=== PATIENT | female | born 1990 | race Caucasian/White ===

== ENCOUNTER → 2016-07-05 | Outpatient (CLI) | payer OTHER, MEDICAID ==
--- NOTE | 2016-07-05 14:55 | REP ---
OB ULTRASOUND: Real-time sonographic evaluation of the gravid uterus is performed utilizing transabdominal and endovaginal technique. There is a single living intrauterine gestation with an estimated gestational age 20 weeks 5 days with EDC 11/17/2016. Today's measurements indicate appropriate growth. Biometry and Growth: BPD 48 mm = 20 weeks 4 days, 47th percentile HC 178 mm = 20 weeks 2 days, 37th percentile AC 159 mm = 21 weeks 0 days, 57th percentile FL 32 mm = 20 weeks 0 days, 34th percentile HC/AC ratio 1.12 within normal range. Estimated weight 362 grams, 42nd percentile. SEEN/GROSSLY UNREMARKABLE Lateral ventricles Yes Posterior fossa Yes Upper lip Yes Four-chamber heart No LVOT Yes RVOT No Stomach Yes Cord insertion Yes Three vessel cord Yes Kidneys Yes Bladder Yes Spine Yes Cervical length: The cervix is closed and measures 3.1 cm in length. heart rate: 141 beats per minute. position: Breech. Placenta: Posterior and grade 0. On transvaginal images the tip of the placenta appears to extend to the margin of the internal cervical os suggesting a marginal previa. Amniotic fluid: Within normal limits. IMPRESSION: anatomy as above. There appears to be a marginal previa. Signed by Julio Hopper MD 07/05/2016 03:58 P
== END ==
LOC: M SMT 10:09
PROVIDERS: ATTEND Obstetrics & Gynecology
DX: Z34.82 Encounter for supervision of other normal pregnancy, second trimester (principal)

== ENCOUNTER → 2016-08-03 | Outpatient (CLI) | payer OTHER, MEDICAID ==
--- NOTE | 2016-08-03 15:46 | REP ---
Clinical: Anatomical evaluation. Comparison: 07/05/2016 . Findings: Examination demonstrates a single live intrauterine in cephalic presentation. motion is identified by technologist. Placenta is noted posterior and low-lying 1.2 cm from the internal os and grade 0. Amniotic fluid volume is normal. Cervix measures 3.5 cm in length and appears closed. No evidence for nuchal cord. Gestational age by LMP 24 weeks 6 days with ZANE 11/17/2016 . Gestational age by current measurements 24 weeks 0 days with ZANE 11/23/2016 . FHR equals 153 beats per minute. Estimated weight 708 grams ( 34th percentile). Anatomical assessment demonstrates normal structures including cranium, choroid plexus, cavum, cerebellum/posterior fossa, facial features, left cardiac ventricular outflow tract, stomach, cord insertion/three-vessel cord, kidneys/bladder, spine, and extremities. Limited evaluation of the facial profile, four-chamber heart and right ventricular outflow tract again noted. Impression: 1. Single live intrauterine currently in cephalic presentation demonstrating appropriate interval growth. 2. Low-lying posterior placenta 1.2 cm from the closed internal os. 3. Limited evaluation of the facial profile, four-chamber heart and right ventricular outflow tract again noted. Signed by Dashawn Morrison MD 08/03/2016 03:37 P
== END ==
LOC: M SMT 13:02
PROVIDERS: ATTEND Advanced Practice Midwife
DX: O44.22 Partial placenta previa NOS or without hemorrhage, second trimester (principal)

== ENCOUNTER → 2016-08-16 | Outpatient (CLI) | payer OTHER, MEDICAID ==
[2016-08-16 13:04] LABS: BASO % 0.1 % (0.0-1.0); EOS # 0.1 K/mm3 (0.0-0.50); EOS % 0.6 % (0.0-3.0); LARGE UNSTAINED CELL # 0.2 K/mm3 (0.0-0.4); LARGE UNSTAINED CELL % 1.1 % (0.0-4.0); LYMPH # 1.7 K/mm3 (1.5-6.5); LYMPH % 11.1 % (24.0-44.0); MEAN CORPUSCULAR HEMOGLOBIN 30.7 pg (27.0-33.0); MEAN CORPUSCULAR HGB CONC 32.9 g/dl (32.0-36.5); MEAN CORPUSCULAR VOLUME 93.4 fl (80.0-96.0); MONO # 0.5 K/mm3 (0.0-0.8); MONO % 3.1 % (0.0-5.0); NEUTROPHILS # 12.5 K/mm3 (1.8-7.7); NEUTROPHILS % 83.9 % (36.0-66.0); PLATELET COUNT, AUTOMATED 282 k/mm3 (150-450); RED CELL DISTRIBUTION WIDTH 13.3 % (11.5-14.5); WHITE BLOOD COUNT 14.9 K/mm3 (4.0-10.0)
== END ==
LOC: M SMT 11:58
PROVIDERS: ATTEND Advanced Practice Midwife
DX: Z34.83 Encounter for supervision of other normal pregnancy, third trimester (principal)

== ENCOUNTER → 2016-09-04 | Outpatient (CLI) | payer OTHER, MEDICAID ==
--- NOTE | 2016-09-05 04:41 | REP ---
Clinical: Anatomical evaluation. Comparison: 08/03/2016 . Findings: Examination demonstrates a single live intrauterine in cephalic presentation. motion is identified by technologist. Placenta is noted posteriorly, low-lying (approximately 1.5 cm from the closed internal os) and grade I. While there is no evidence for vasa previa, prominent vessels are identified adjacent to the closed cervix. Amniotic fluid volume is normal. Cervix measures 3.8 cm in length and appears closed. Nuchal cord noted. Gestational age by LMP 29 weeks 3 days with ZANE 11/17/2016 . Gestational age by first ultrasound 29 weeks 3 days with ZANE 11/17/2016. FHR equals 144 beats per minute. Estimated weight 1273 grams ( 27th percentile). Limited anatomical assessment again demonstrates incomplete evaluation of the heart and cardiac ventricular outflow tracts. A small pericardial effusion is suggested. Impression: 1. Single live intrauterine in cephalic presentation. 2. Low-lying posterior placenta with prominent vessels noted adjacent to the close cervical os. 3. Small pericardial effusion and incomplete evaluation of the heart/cardiac ventricular outflow tracts again noted. Signed by Dashawn Morrisno MD 09/05/2016 04:32 A
== END ==
LOC: M SMT 13:44
PROVIDERS: ATTEND Advanced Practice Midwife
DX: Z34.83 Encounter for supervision of other normal pregnancy, third trimester (principal)

== ENCOUNTER → 2016-10-03 | Outpatient (CLI) | payer OTHER, MEDICAID ==
--- NOTE | 2016-10-03 22:12 | REP ---
Clinical: Evaluate placental location. Comparison: 09/04/2016. Technique: Transabdominal obstetrical ultrasound with color Doppler evaluation. Findings: Ultrasound examination demonstrates single live advanced gestation in cephalic presentation. motion was identified by technologist. heart rate equals 139 beats per minute. Gestational age by first ultrasound 33 weeks 4 days. Placenta is identified posteriorly and grade 1 approximately 2.1 cm from the internal os. No funneling or endocervical fluid is appreciated. Amniotic fluid index equals 9.7 cm (8.2 - 24.7). Umbilical cord SD ratio equals 2.41 (2.00 - 3.00). Impression: 1. Single live advanced gestation in cephalic presentation. 2. Placenta is noted posteriorly and low-lying, approximately 2.1 cm from the closed internal os. Signed by Dashawn Morrison MD 10/03/2016 10:04 P
== END ==
LOC: M SMT 10:47
PROVIDERS: ATTEND Specialist
DX: O44.43 Low lying placenta NOS or without hemorrhage, third trimester (principal)

== ENCOUNTER 2016-10-25 00:37 | Inpatient (IN) | payer OTHER, MEDICAID ==
[~2016-10-25] VITALS: Ht 152.4 cm; Wt 85.0 kg
[2016-10-25] VITALS (14 sets, daily range): BP systolic 118–141; BP diastolic 60–85
[2016-10-25] MEDS ORDERED: LR 1,000 ML IV SCH (01:24)
[2016-10-25] MEDS ORDERED: PENICILLIN G POTASSIUM IV 5 MU in D5W MINI-BAG PLUS 100 ML IV STA (01:24)
[2016-10-25] MEDS ORDERED: BETAMETHASONE SOLUSPAN 6MG/ML INJ 5ML (J0702) IM SCH (01:30)
[2016-10-25] MEDS ORDERED: OXYTOCIN DRIP 30 UNITS in APPROPRIATE DILUENT 1 EA IV SCH ×2 (01:30→06:50)
[2016-10-25 01:54] LABS: MEAN CORPUSCULAR HEMOGLOBIN 31.5 pg (27.0-33.0); MEAN CORPUSCULAR HGB CONC 34.4 g/dl (32.0-36.5); MEAN CORPUSCULAR VOLUME 91.3 fl (80.0-96.0); RED CELL DISTRIBUTION WIDTH 13.6 % (11.5-14.5); WHITE BLOOD COUNT 13.4 K/mm3 (4.0-10.0)
[2016-10-25] MEDS ORDERED: BUTORPHANOL 2 MG/ML INJ (J0595) IV ONE (02:30)
[2016-10-25] MEDS ORDERED: PROMETHAZINE INJ 25 MG/ML VIAL (J2550) IV ONE (02:30)
[2016-10-25] MEDS ORDERED: FE G325T PO (03:31)
[2016-10-25] MEDS ORDERED: PENICILLIN G POTASSIUM IV 2.5 MU in D5W 100 ML IV SCH (05:30)
[2016-10-25 06:23] LABS: CORD GAS ABE V -7.7; CORD GAS HCO3 V 17.1 MEQ/L; CORD GAS O2 SAT V 84.7 %; CORD GAS PCO2 V 33.4 mmHg; CORD GAS PH V 7.326 UNITS; CORD GAS PO2 V 41.3 mmHg; CORD GAS SBC V 18.1 MEQ/L; CORD GAS TCO2 V 18.1 MEQ/L
[2016-10-25 06:26] LABS: CORD GAS ABE A -6.3; CORD GAS HCO3 A 20.9 MEQ/L; CORD GAS O2 SAT A 59.2 %; CORD GAS PCO2 A 47.5 mmHg; CORD GAS PH A 7.262 UNITS; CORD GAS PO2 A 26.2 mmHg; CORD GAS SBC A 18.5 MEQ/L; CORD GAS TCO2 A 22.4 MEQ/L
[2016-10-25] MEDS ORDERED: LIDOCAINE 1% MDV INJ 50 ML VIAL INFIL ONE (07:00)
[2016-10-25] MEDS ORDERED: PROMETHAZINE 25 MG TAB PO PRN (07:00)
[2016-10-25] MEDS ORDERED: IBUPROFEN 800 MG TAB PO PRN (07:00)
[2016-10-25] MEDS ORDERED: ANUSOL HC CREAM 30GM TOP PRN (07:00)
[2016-10-25] MEDS ORDERED: DOCUSATE SODIUM 100 MG CAP PO PRN (07:00)
[2016-10-25] MEDS ORDERED: DIBUCAINE 1% OINTMENT 30GM TOP PRN (07:00)
[2016-10-25] MEDS ORDERED: RHOGAM 300 MCG (1500 IU) INJ (J2790) IM SCH (07:00)
[2016-10-25] MEDS ORDERED: METHYLERGONOVINE MALEATE 0.2 MG TAB PO PRN (07:00)
[2016-10-25] MEDS ORDERED: MEASLES,MUMPS,RUBELLA VACCINE INJ (MMR-II) (90707) SC SCH (07:00)
[2016-10-25] MEDS ORDERED: ACETAMINOPHEN 500 MG TAB PO PRN (07:00)
--- NOTE | 2016-10-25 07:09 | DN ---
DATE: 10/25/2016 Jennifer is a 26-year-old 3, para 0-1-2-1 now, who was admitted to labor and delivery with premature rupture of membranes. Intravenous (IV) antibiotics for started for Group B streptococcus (GBS) prophylaxis as well as IV Pitocin. She utilized IV pain medication to cope with her labor. She progressed to full dilation at 0446 hours. She pushed to a normal spontaneous vaginal delivery of a live male infant in occiput anterior (OA) position with restitution to occiput transverse (ROT) position at 0551 hours. There was a nuchal cord times one loose that was reduced manually at the time of delivery. The shoulders delivered with gentle downward traction and the corpus immediately followed. The was placed on maternal abdomen crying and active. His mouth and nares were bulb suctioned. The cord was clamped times two and cut by the father of the baby. Cord gases and cord blood were obtained. A spontaneous expulsion of an intact placenta with three-vessel cord by Ledezma mechanism was at 0602 hours. Uterine hemostasis achieved with IV Pitocin rapid infusion and uterine fundal massage. Estimated blood loss 350 mL. Perineum and vagina inspected, noted to have a first-degree midline laceration. The laceration was infiltrated with 1% lidocaine and repaired with #3-0 Rapide in the usual fashion. The male weighed 2820 grams (6 pounds 3 ounces). 9 and 9. Mom plans to breastfeed her son and the family have named him Rosetta. At the close of delivery, lap counts, needle counts and instrument counts were correct and verified.
[2016-10-25] MEDS: PRENATAL VITAMIN TAB PO SCH (09:31)
--- NOTE | 2016-10-25 22:12 | HPE ---
DATE OF ADMISSION: 10/25/2016 SUBJECTIVE: Jennifer is a 26-year-old 3, para 0-0-2-0 at 35-6/7 weeks gestation with an estimated date of confinement (EDC) of 11/24/2015, based on first trimester ultrasound. She presents to labor and delivery today with report of uncomfortable contractions that remained throughout the day and became progressively more uncomfortable overnight. She reports that she has a spontaneous rupture of clear fluid at approximately 2330. She does report continued leakage of fluid and continued contractions with some bloody show. Her fetus has been active. care was initiated at [facility] in the first trimester. course complicated by cigarette smoking throughout her , a low-lying placenta which resolved on 10/03/2106, sonogram. OBSTETRIC HISTORY: Spontaneous times two. OBSTETRIC LABORATORIES: Blood type is B positive, antibody screen negative, rubella immune, VDRL nonreactive. Hepatitis B surface antigen negative, HIV negative. Hepatitis C antibody nonreactive. Gonorrhea and chlamydia negative. She declined all genetic serum screening labs. Her gestational diabetic screening was normal at 126 and her GBS is unknown at this time. PAST MEDICAL HISTORY: Negative. SURGERIES: Knee surgery. FAMILY HISTORY: Hypertension, deep venous thrombosis (DVT). SOCIAL HISTORY: The patient is single. However of the father of the baby is at bedside and supportive. She is a smoker. She denies alcohol and drug use. Denies history of sexually transmitted infections. Denies history of abuse physical, sexual and emotional. ALLERGIES: No known drug allergies. CURRENT MEDICATIONS: Ferrous gluconate, vitamins OBJECTIVE: Temperature is 97.9, pulse 105, respirations 18, blood pressure 136/85. She is alert and oriented. She is uncomfortable with her contractions. heart rate is 130 with moderate variability, positive accelerations noted. No decelerations noted. Contractions every 1-4 minutes. Sterile speculum exam positive Valsalva, positive Nitrazine and positive ferning. Sterile vaginal exam 3-4 cm dilated, 90% effaced, minus one station. Abdomen is gravid with cephalic presentation confirmed with bedside ultrasound. Estimated weight 6 pounds. Group B streptococcus (GBS) was obtained. ASSESSMENT: Intrauterine at 35-6/7 weeks gestation. heart rate category one, TPROM. PLAN: Admit the patient to labor and delivery, labs, out of bed ad tiffanie. Clear liquid diet. Start antibiotics for GBS prophylaxis. Betamethasone for lung maturity and intravenous (IV) Pitocin to augment the labor. The patient does desire an epidural potentially for her labor coping or IV pain medications as needed. I did review risks of immaturity and the likelihood of the 's admission to the intensive care unit. I do anticipate a normal spontaneous vaginal delivery.
[2016-10-26 05:50] VITALS: BP 131/76
[2016-10-26] MEDS: PRENATAL VITAMIN TAB PO SCH (08:39)
[2016-10-26 18:00] VITALS: BP 129/63
[2016-10-27 05:32] VITALS: BP 133/76
[2016-10-27] MEDS ORDERED: PRENATAL VITAMINS CHEWABLE TABLET PO SCH (09:00)
[2016-10-27] MEDS ORDERED: ACET50TA PO (11:12)
[2016-10-27] MEDS ORDERED: IBUP-1114 PO (11:12)
== END 2016-10-27 12:37 | disposition home or self-care (01) | DRG 560 ==
LOC: M LDO 00:37 → M LDI 01:20 → M OBS 08:48
PROVIDERS: ADMIT Advanced Practice Midwife; ATTEND Advanced Practice Midwife
PROC: 10E0XZZ Delivery of Products of Conception, External Approach (ICD-10-PCS; principal; 2016-10-25)
PROC: 0HQ9XZZ Repair Perineum Skin, External Approach (ICD-10-PCS; 2016-10-25)
DX: O42.013 Preterm premature rupture of membranes, onset of labor within 24 hours of rupture, third trimester (principal); O60.14X0 Preterm labor third trimester with preterm delivery third trimester, not applicable or unspecified; Z37.0 Single live birth; Z3A.35 35 weeks gestation of pregnancy; F17.210 Nicotine dependence, cigarettes, uncomplicated; Z79.899 Other long term (current) drug therapy; O69.82X0 Labor and delivery complicated by other cord entanglement, without compression, not applicable or unspecified; O70.0 First degree perineal laceration during delivery; O99.334 Smoking (tobacco) complicating childbirth

== ENCOUNTER → 2017-11-12 | Outpatient (REF) | payer OTHER, MEDICAID | LOC: M LAB REF 18:23 | DX: Z12.4 Encounter for screening for malignant neoplasm of cervix (principal) | CPT/HCPCS: 88142 ==

== ENCOUNTER → 2018-11-20 | Outpatient (CLI) | payer OTHER, MEDICAID ==
[~2018-11-20] MED LIST: FE G325T PO; IBUP-1114 PO; MAPA500T2 PO
[2018-11-20 16:10] LABS: CHLAMYDIA DNA AMPLIFICATION NEGATIVE (NEGATIVE); GC DNA AMPLIFICATION NEGATIVE (NEGATIVE)
[2018-11-20 17:57] LABS: HCG, SERUM QUALITATIVE NEGATIVE (NEGATIVE)
== END ==
LOC: M SMT 11:17
PROVIDERS: ATTEND Advanced Practice Midwife
DX: N91.2 Amenorrhea, unspecified (principal); Z11.3 Encounter for screening for infections with a predominantly sexual mode of transmission

== ENCOUNTER → 2020-05-17 | Outpatient (REF) | payer OTHER, MEDICAID | LOC: M PLALAB 16:46 | PROVIDERS: ATTEND Advanced Practice Midwife | DX: O03.9 Complete or unspecified spontaneous abortion without complication (principal); Z12.4 Encounter for screening for malignant neoplasm of cervix; Z77.9 Other contact with and (suspected) exposures hazardous to health; Z01.419 Encounter for gynecological examination (general) (routine) without abnormal findings ==

== ENCOUNTER → 2022-01-02 | Outpatient (CLI) | payer OTHER, MEDICAID ==
[2022-01-02 13:45] LABS: HEMATOCRIT 43.6 % (36.0-47.0); HEMOGLOBIN 14.9 g/dl (12.0-15.5); MEAN CORPUSCULAR HEMOGLOBIN 30.7 pg (27.0-33.0); MEAN CORPUSCULAR HGB CONC 34.2 g/dl (32.0-36.5); MEAN CORPUSCULAR VOLUME 89.7 fl (80.0-96.0); PLATELET COUNT, AUTOMATED 243 10^3/uL (150-450); RED BLOOD COUNT 4.86 10^6/uL (4.00-5.40); WHITE BLOOD COUNT 10.6 10^3/uL (4.0-10.0)
[2022-01-02 15:02] LABS: HEPATITIS C VIRUS ABY INDEX < 0.0 INDEX (<0.8); HIV 1&2 SCREEN CENTAUR NEGATIVE (NEGATIVE)
[2022-01-02 15:48] LABS: GC DNA AMPLIFICATION NEGATIVE (NEGATIVE)
== END ==
LOC: M PLALAB 10:42
PROVIDERS: ATTEND Specialist
DX: Z34.81 Encounter for supervision of other normal pregnancy, first trimester (principal)

== ENCOUNTER 2022-02-28 17:18 | Emergency (ER) | payer MEDICAID, OTHER ==
[~2022-02-28] VITALS: Ht 152.4 cm; Wt 77.6 kg
[2022-02-28] MEDS ORDERED: MULTTAB20 PO (17:29)
[2022-02-28 21:02] LABS: BASO % 0.2 % (0.0-1.0); EOS # 0.1 10^3/uL (0.0-0.5); EOS % 0.5 % (0.0-3.0); HEMATOCRIT 36.4 % (36.0-47.0); HEMOGLOBIN 12.6 g/dl (12.0-15.5); MEAN CORPUSCULAR HEMOGLOBIN 31.4 pg (27.0-33.0); MEAN CORPUSCULAR HGB CONC 34.6 g/dl (32.0-36.5); MEAN CORPUSCULAR VOLUME 90.8 fl (80.0-96.0); MONO # 0.5 10^3/uL (0.0-0.8); MONO % 4.7 % (2.0-8.0); NEUTROPHILS # 7.2 10^3/uL (1.5-8.5); NEUTROPHILS % 73.9 % (36.0-66.0); PLATELET COUNT, AUTOMATED 233 10^3/uL (150-450); RED BLOOD COUNT 4.01 10^6/uL (4.00-5.40); WHITE BLOOD COUNT 9.8 10^3/uL (4.0-10.0)
[2022-02-28 22:02] LABS: ALBUMIN 3.2 GM/DL (3.2-5.2); ALT/SGPT 21 U/L (12-78); BILIRUBIN,DIRECT 0.1 MG/DL (0.0-0.2); BILIRUBIN,TOTAL 0.4 MG/DL (0.2-1.0); BLOOD UREA NITROGEN 4 MG/DL (7-18); CALCIUM LEVEL 8.7 MG/DL (8.5-10.1); CARBON DIOXIDE LEVEL 21 MEQ/L (21-32); CHLORIDE LEVEL 108 MEQ/L (98-107); CREATININE FOR GFR 0.53 MG/DL (0.55-1.30); GLOMERULAR FILTRATION RATE > 60.0 (>60); GLUCOSE, FASTING 93 MG/DL (70-100); HCG, SERUM QUANTITATIVE 17183 MIU/ML; LIPASE 102 U/L (73-393); POTASSIUM SERUM 3.7 MEQ/L (3.5-5.1); SODIUM LEVEL 139 MEQ/L (136-145); TOTAL PROTEIN 6.1 GM/DL (6.4-8.2)
[2022-02-28 22:46] VITALS: BP 144/70
== END 2022-02-28 22:49 | disposition home or self-care (01) ==
LOC: M ED 17:18
DX: O26.899 Other specified pregnancy related conditions, unspecified trimester (principal); R10.2 Pelvic and perineal pain; Z3A.17 17 weeks gestation of pregnancy; Z79.899 Other long term (current) drug therapy

== ENCOUNTER → 2022-03-13 | Outpatient (CLI) | payer OTHER ==
[~2022-03-13] MED LIST changes: +MULTTAB20 PO
== END ==
LOC: M WHC 09:52
PROVIDERS: ATTEND Obstetrics & Gynecology
DX: O99.332 Smoking (tobacco) complicating pregnancy, second trimester (principal); Z3A.19 19 weeks gestation of pregnancy

== ENCOUNTER → 2022-04-05 | Outpatient (CLI) | payer OTHER | LOC: M WHC 11:54 | PROVIDERS: ATTEND Advanced Practice Midwife | DX: Z36.2 Encounter for other antenatal screening follow-up (principal); Z3A.22 22 weeks gestation of pregnancy ==

== ENCOUNTER → 2022-05-25 | Outpatient (CLI) | payer OTHER ==
[2022-05-25 18:20] LABS: HEMATOCRIT 35.9 % (36.0-47.0); HEMOGLOBIN 11.6 g/dl (12.0-15.5); MEAN CORPUSCULAR HEMOGLOBIN 30.5 pg (27.0-33.0); MEAN CORPUSCULAR HGB CONC 32.3 g/dl (32.0-36.5); MEAN CORPUSCULAR VOLUME 94.5 fl (80.0-96.0); PLATELET COUNT, AUTOMATED 238 10^3/uL (150-450); WHITE BLOOD COUNT 12.7 10^3/uL (4.0-10.0)
[2022-05-25 20:19] LABS: GC DNA AMPLIFICATION NEGATIVE (NEGATIVE)
== END ==
LOC: M PLALAB 14:08
PROVIDERS: ATTEND Specialist
DX: Z34.82 Encounter for supervision of other normal pregnancy, second trimester (principal)

== ENCOUNTER → 2022-06-05 | Outpatient (CLI) | payer OTHER | LOC: M LAB 08:09 | PROVIDERS: ATTEND Specialist | DX: Z36.89 Encounter for other specified antenatal screening (principal) ==

== ENCOUNTER → 2022-07-11 | Outpatient (REF) | payer OTHER | LOC: M SFHCWAGY 16:51 | PROVIDERS: ATTEND Obstetrics & Gynecology | DX: Z34.93 Encounter for supervision of normal pregnancy, unspecified, third trimester (principal) ==

== ENCOUNTER 2023-08-30 08:49 | Day surgery (SDC) | payer OTHER ==
[~2023-08-30] VITALS: Ht 154.9 cm; Wt 77.0 kg
[~2023-08-30 08:49] MED LIST changes: +ACET-683 PO; +IBUP80TA PO; +OMEP-173 PO; +SERT50TA29 PO
[2023-08-30 09:24] LABS: HEMATOCRIT 42.4 % (36.0-47.0); HEMOGLOBIN 14.5 g/dl (12.0-15.5); MEAN CORPUSCULAR HEMOGLOBIN 30.5 pg (27.0-33.0); MEAN CORPUSCULAR HGB CONC 34.2 g/dl (32.0-36.5); MEAN CORPUSCULAR VOLUME 89.1 fl (80.0-96.0); PLATELET COUNT, AUTOMATED 239 10^3/uL (150-450); RED BLOOD COUNT 4.76 10^6/uL (4.00-5.40); WHITE BLOOD COUNT 7.2 10^3/uL (4.0-10.0)
[2023-08-30] MEDS ORDERED: LR 1,000 ML IV SCH ×2 (09:40→12:30)
[2023-08-30] MEDS ORDERED: KETOROLAC 60MG 2ML VIAL As Ordered ONE (10:12)
[2023-08-30] MEDS ORDERED: propofoL 200 MG/20 ML VIAL As Ordered ONE (10:12)
[2023-08-30] MEDS ORDERED: ONDANSETRON 4MG 2ML VIAL As Ordered ONE (10:12)
[2023-08-30] MEDS ORDERED: SUGAMMADEX SODIUM 500 MG/5 ML VIAL (BRIDION) As Ordered ONE (10:12)
[2023-08-30] MEDS ORDERED: ROCURONIUM BROMIDE 50MG/5ML VIAL As Ordered ONE (10:12)
[2023-08-30] MEDS ORDERED: LIDOCAINE 2% 100MG/5ML SDV (FOR ANES.) As Ordered ONE (10:12)
[2023-08-30] MEDS ORDERED: fentaNYL 100 MCG/2 ML INJECTION As Ordered ONE (10:17)
[2023-08-30] MEDS ORDERED: MIDAZOLAM INJ 2MG/2ML VIAL As Ordered ONE (10:17)
[2023-08-30] MEDS ORDERED: ACETAMINOPHEN 1000MG 100ML IV BAG As Ordered ONE (11:53)
[2023-08-30] MEDS ORDERED: METOCLOPRAMIDE INJ 10MG/2ML VIAL IV PRN (12:30)
[2023-08-30] MEDS ORDERED: MEPERIDINE 25 MG/ML 1ML VIAL IV PRN (12:30)
[2023-08-30] MEDS ORDERED: fentaNYL 100 MCG/2 ML INJECTION IV PRN (12:30)
[2023-08-30] MEDS ORDERED: HYDROMORPHONE HCL 0.5 MG/ 0.5 ML SYRINGE IV PRN (12:30)
[2023-08-30] MEDS ORDERED: ONDANSETRON 4MG 2ML VIAL IV PRN (12:30)
[2023-08-30] MEDS ORDERED: diphenhydrAMINE 50MG/ML VIAL IV PRN (12:30)
[2023-08-30] MEDS ORDERED: oxyCODONE 5MG TAB PO PRN (12:30)
[2023-08-30] MEDS ORDERED: PERCOCET 5MG/325MG TAB PO PRN (12:50)
[2023-08-30 13:30] VITALS: BP 116/70; TEMP 97.1; O2SAT 98
[2023-08-30] MEDS ORDERED: KETOROLAC 30 MG/ML 1ML VIAL IV SCH (18:00)
== END 2023-08-30 13:40 | disposition home or self-care (01) ==
LOC: M SDC 08:49
PROVIDERS: ATTEND Obstetrics & Gynecology
DX: Z30.2 Encounter for sterilization (principal); F41.9 Anxiety disorder, unspecified; G43.909 Migraine, unspecified, not intractable, without status migrainosus; F17.210 Nicotine dependence, cigarettes, uncomplicated
CPT/HCPCS: 36415; 58661; 81025; 85027; 86850; 86900; 86901; 88302; J0131; J0665; J1100; J1885; J2250; J2405; J3010

== ENCOUNTER → 2023-11-20 | Outpatient (REF) | payer OTHER ==
[2023-11-26 14:57] LABS: HPV APTIMA Not Detected (Not Detected)
== END ==
LOC: M SFHCWAGY 13:03
PROVIDERS: ATTEND Obstetrics & Gynecology
DX: Z12.4 Encounter for screening for malignant neoplasm of cervix (principal)

== ENCOUNTER → 2023-12-19 | Outpatient (CLI) | payer OTHER | LOC: M WHC 07:43 | PROVIDERS: ATTEND Obstetrics & Gynecology | DX: N93.9 Abnormal uterine and vaginal bleeding, unspecified (principal) ==

== ENCOUNTER → 2023-12-19 | Outpatient (CLI) | payer OTHER ==
[2023-12-19 11:19] LABS: FREE T4 1.24 NG/DL (0.89-1.76)
[2023-12-19 11:20] LABS: THYROID STIMULATING HORMONE 0.487 uIU/ML (0.55-4.78)
== END ==
LOC: M PLALAB 08:59
PROVIDERS: ATTEND Obstetrics & Gynecology
DX: N93.9 Abnormal uterine and vaginal bleeding, unspecified (principal)

== ENCOUNTER → 2024-02-04 | Outpatient (CLI) | payer OTHER ==
[2024-02-04 14:19] LABS: FREE T4 1.34 NG/DL (0.89-1.76); THYROID STIMULATING HORMONE 0.384 uIU/ML (0.55-4.78)
== END ==
LOC: M PLALAB 10:10
PROVIDERS: ATTEND Obstetrics & Gynecology
DX: Z13.29 Encounter for screening for other suspected endocrine disorder (principal)